=== PATIENT | male | born 1975 | race African-American/Black ===

== ENCOUNTER 2017-02-28 13:40 | Emergency (ER) | payer OTHER ==
[~2017-02-28] VITALS: Ht 193 cm; Wt 108.0 kg
[2017-02-28 13:41] VITALS: BP 136/74
[2017-02-28] MEDS ORDERED: IBUPROFEN 600600 M1 PO (14:31)
[2017-02-28] MEDS ORDERED: LIORESAL 10 MG10 MG PO (14:31)
== END 2017-02-28 14:40 | disposition home or self-care (01) ==
LOC: ER 13:40
DX: S46.912A Strain of unspecified muscle, fascia and tendon at shoulder and upper arm level, left arm, initial encounter (principal); S39.012A Strain of muscle, fascia and tendon of lower back, initial encounter; F10.99 Alcohol use, unspecified with unspecified alcohol-induced disorder; V89.2XXA Person injured in unspecified motor-vehicle accident, traffic, initial encounter; Y93.I9 Activity, other involving external motion; Y92.89 Other specified places as the place of occurrence of the external cause; Y99.8 Other external cause status

== ENCOUNTER 2017-10-11 19:06 | Emergency (ER) | payer OTHER ==
[~2017-10-11] VITALS: Ht 193 cm; Wt 106.6 kg
[~2017-10-11 19:06] MED LIST: IBUPROFEN 600600 M1 PO; LIORESAL 10 MG10 MG PO
[2017-10-11 19:27] VITALS: BP 146/95
[2017-10-11] MEDS ORDERED: HYDROCODONE-AP1 EAC6 PO (20:00)
[2017-10-11] MEDS ORDERED: CLEOCIN HCL150 MG PO (20:00)
[2017-10-11] MEDS ORDERED: IBUPROFEN 800800 M1 PO (20:00)
== END 2017-10-11 21:56 | disposition home or self-care (01) ==
LOC: ER 19:06
DX: L02.31 Cutaneous abscess of buttock (principal)